=== PATIENT | male | born 1985 | race Caucasian/White ===

== ENCOUNTER 2021-07-25 09:53 | Emergency (ER) | payer SELFPAY ==
[~2021-07-25] VITALS: Ht 180.3 cm; Wt 68.0 kg
--- NOTE | 2021-07-25 09:53 | NUR ---
[id number] C/O RASH ON BUTTOCKS SINCE THIS AM. VITALS WITHIN NORMAL LIMITS. BREATHING IS REGULAR AND UNLABORED. PT SENT TO ER CHAIR WAITING FOR DOCTOR GUTIERREZ.
[2021-07-25 10:07] VITALS: BP 124/84
[2021-07-25] MEDS ORDERED: CYCL5TAB PO (10:47)
--- NOTE | 2021-07-25 10:51 | NUR ---
Note holly in EDM - 07/25/21 at 1053 by CYN [id number] C/O RASH ON BUTTOCKS SINCE THIS AM. VITALS WITHIN NORMAL LIMITS. BREATHING IS REGULAR AND UNLABORED. PT SENT TO ER CHAIR WAITING FOR DOCTOR MATT.
--- NOTE | 2021-07-25 13:57 | NUR ---
"SS Consult: SS consult for homelessness. Pt. Is a 35-year-old male. Pt. demonstrates adequate insight to the reason for hospitalization. Per pt., he was brought to hospital by ambulance. Pt. was oriented x3, alert, and cooperative. During interview, pt. was capable of following directions, made appropriate eye-contact, and appeared unkempt. Evidenced by: dirty clothing, bad hygiene. Pt.s speech was at a normal rate. SW explored pt.s Hx of mental health and substance abuse. Pt. reported no Hx of mental health, substance abuse, suicidal or homicidal. Pt. denies auditory hallucinations, visual hallucinations, paranoia, or delusions. SW explored pt.s living situation. Per pt., he is homeless. Pt. reported that he is in the process of getting housing from [facility] [[address] [place] [address], tele: [phone]]. Pt. asked SW to contact the Adriana, but she did not answer. EMANUEL provided [facility] contact information for pt. Pt. expressed that he wants a tap card. EMANUEL provided pt. with one. Plan: SW provided available homeless resources and pt. accepted. Per pt., he will return to the streets but use the resources that are provided. Resources Provided: Year-round shelters: [facility] [place] [address] [place], [place] [id number] ; [facility] [place] [address] [place] [address]; [facility] Wsewsei8878 [facility] [address] Winter Shelters: Walter Gonzalez Provider: [facility] [place] Address: [address] [facility] [place], [address] # of Beds: 47 Population Served: [facility] 6 | [facility] Maya Morgan Lisa Provider: [facility] Address: [address], [address] # of Beds: 66 Population Served: Tee Farfanise [place] Provider: [facility] Serve Address: [address] [facility], [address] # of Beds: 56 Population Served: Coed Robert Valeriy [place] Provider: /[facility]. [facility] Address: [address] [facility], [address] # of Beds: 49 Population Served: Coed SPA 8 | [place] Provider: First to Serve Address: [address], [address] # of Beds: 37 Population Served: Coed Hygiene: [facility]: [address] [place] ; [facility] [address] [facility] [place] ; [facility] [address] [place] . Food Resources: [facility]- [address] [facility]; Meet Each Need with Dignity ([facility]) [address] [facility] HospitalJennifer [facility]; [facility] [address] [facility]; [facility] [address] [facility] Mental Health resources provided: [facility] [address] [place], [place] [id number] ; [facility] [place] [address] [facility] [address], [place], [place] [id number] ; Debbie Pond [facility] [address], [place] [phone] ; [facility] [address] [place], [place] [id number] Healthcare Clinics: [facility] [address] [facility], [address] [place]. [place] ; [facility] [address] [facility] [address] [place] [address]; [facility] [address] [facility]. [place] [phone] Counseling--Outpatient [facility] [address] [facility], [address] [place], [place] [address] (Specializes in in-depth psychotherapy for emotional distress: anxiety, depression, interpersonal conflicts, life transitions, childhood abuse) [facility] [address] [place] [address] (Assist with solving problem marital difficulties, separation & divorce, aging parents, & grief, chronic & terminal illness) [facility] [address] [place] [address] (Deal with loss & grief, anxiety, marital difficulties) Homebound/Mental Health Services [address] [facility] [address] [place] [address] (Provide in-home mental services to people who are incapable of leaving their homes) [facility] of [facility] Elderly Senior Service/Resource Center [address] [place] [address] [facility] [address] [place], [place] [address] PSYCHIATRIC OUTPATIENT SERVICES [facility] Partial Hospitalization and Intensive Outpatient Program (Managed Care and [place] Only)[address] [facility] [phone] [facility] Partial Hospitalization and Outpatient [id number] [facility]. [address] [place], [place] [phone] [facility] [id number] [facility] [address] [place], [place] [phone] [facility] Partial Hospitalization and Outpatient Hzyflxm85803 [place], [phone] Substance Abuse resources provided included: [facility] Substance Abuse Self-Helpline ([facility]) ; [facility] [address] [facility] [place] [facility]. [place] [address] ; [facility] [address] [facility] [address] ; [facility] [address] [address] [address] ; [facility] [address] [facility] [phone] ; [facility] [address] [facility] [address] ; [facility] [address] [facility] [phone] ; [facility] Substance Abuse Helpline([facility] ; [facility] Family Counseling ; [facility] [place]; [facility] [place]; [facility] [place]; [facility] Nor[place]to Rios; [facility] [place]; [place]; [facility] [place]; [facility], [facility]. [place]; Alcoholics Anonymous -SFV; Tr-Aqlk-Hvhdckn ; Marijuana Anonymous -SFV; Narcotics Anonymous www.na.org; Winter Shelters: SPA 2 | [facility]: [facility] Address: Confidential (call for location ) Population Served: Coed # of Beds: 57 SPA 4 | [facility] Provider: [facility] Address: [address] [place] [address], [address] # of Beds: 49 Population Served: Coed SPA 6 | [facility] Provider: [facility] Address: [address] [place] [address], [address] # of Beds: 49 Population Served: Coed Michael Melgar [facility] [place] [facility] Provider: Debbie Melgar IAC[place] Address: [facility] Lakshmi [place] [facility] [address] # of Beds: 20 Population Served: Women ENZO Facility Provider: [facility] Address: [address] [facility]. [facility] [address] # of Beds: 30 Population Served: Women SPA 8 | [facility] Former Library Provider: Maisha knight Arleen Address: [address] [place] [address] # of Beds: 65 Population Served: Tee"
== END 2021-07-25 11:30 | disposition home or self-care (01) ==
LOC: ER 10:09
DX: K59.4 Anal spasm (principal); Z59.00 Homelessness unspecified

== ENCOUNTER 2022-05-05 18:31 | Emergency (ER) | payer SELFPAY ==
[~2022-05-05] VITALS: Ht 170.2 cm; Wt 72.6 kg
[~2022-05-05 18:31] MED LIST: CYCL5TAB PO
--- NOTE | 2022-05-05 18:45 | NUR ---
BIBA [id number] "Bottle stuck on base of penis". On room air, breathing evenly and unlabored. Kept comfortable will continue to monitor accordingly.
--- NOTE | 2022-05-05 19:24 | NUR ---
DR HAHN AT BEDSIDE FOR FOREIGHN BODY REMOVAL
[2022-05-05 21:20] VITALS: BP 121/67
== END 2022-05-05 21:20 | disposition home or self-care (01) ==
LOC: ER 18:33
DX: S30.842A External constriction of penis, initial encounter (principal); N48.89 Other specified disorders of penis; Z59.00 Homelessness unspecified; Z79.899 Other long term (current) drug therapy; W49.09XA Other specified item causing external constriction, initial encounter; Y93.89 Activity, other specified; Y92.89 Other specified places as the place of occurrence of the external cause; Y99.8 Other external cause status

== ENCOUNTER 2022-08-01 13:30 | Emergency (ER) | payer SELFPAY ==
[~2022-08-01] VITALS: Ht 177.8 cm; Wt 72.6 kg
--- NOTE | 2022-08-01 14:57 | NUR ---
Patient discharged to home in stable condition. Written and verbal after care instructions given. Patient verbalizes understanding of instruction. Patient ambulated out of unit without incident.
[2022-08-01 14:59] VITALS: BP 128/60
== END 2022-08-01 15:00 | disposition home or self-care (01) ==
LOC: ER 13:37
DX: S30.842A External constriction of penis, initial encounter (principal); Z59.00 Homelessness unspecified; Z79.899 Other long term (current) drug therapy; W49.04XA Ring or other jewelry causing external constriction, initial encounter; Y93.89 Activity, other specified; Y92.89 Other specified places as the place of occurrence of the external cause; Y99.8 Other external cause status

== ENCOUNTER 2023-12-06 05:37 | Emergency (ER) | payer BC ==
[~2023-12-06] VITALS: Ht 172.7 cm; Wt 68.0 kg
[2023-12-06 05:57] VITALS: TEMP 98.2
[2023-12-06 06:14] VITALS: BP 138/88; O2SAT 99
== END 2023-12-06 06:16 | disposition left against medical advice (07) ==
LOC: ER 05:40
DX: R53.1 Weakness (principal); Z53.21 Procedure and treatment not carried out due to patient leaving prior to being seen by health care provider